=== PATIENT | female | born 1945 | race Caucasian/White ===

== ENCOUNTER 2021-04-13 08:53 | Inpatient (IN) | payer MEDICARE ==
[~2021-04-13] VITALS: Ht 159 cm; Wt 84.8 kg
[~2021-04-13 08:53] MED LIST: CBD GUMMIES; IBUP600 PO; LEVSOD75 PO; VITAMIN D310 MC4 PO; ZOLP6.25 PO
--- NOTE | 2021-04-13 09:46 | NUR ---
PT INTO SDS VIA W/C. History, Chart, Medications and Allergies reviewed before start of procedure. Lungs clear T/O to Auscultation. Patient confirms NPO status and agrees with scheduled surgery. Pre-Op teaching done. Pt verbalizes understanding.
--- NOTE | 2021-04-13 11:49 | NUR ---
04/13/21 1149 Kat Tristan SPINAL ATTEMPTED WITHOUT SUCCESS--PROCEED WITH GENERAL ANESTHESIA PER DR. GREENE
--- NOTE | 2021-04-13 14:23 | NUR ---
PT ARRIVED TO UNIT FROM PACU IN BED. REPORTED NAUSEA AND PAIN /. AWAITING ORDERS. PROVIDED WARM BLANKETS AND TURNED UP THERMOSTAT FOR PT COMFORT. LCA. HRR. AQUACEL TO L HIP CDI. POLAR PACK IN PLACE. SANAZ ONEAL AND SANTIAGO ON. VSS. TXA COMPLETED PER ORDERS. CALL LIGHT IN REACH. DAUGHTER AT BEDSIDE.
--- NOTE | 2021-04-13 16:21 | NUR ---
THERAPY IN TO SEE PT.
--- NOTE | 2021-04-13 16:44 | NUR ---
PT IN CHAIR WORKED W/THERAPY. REPORTS PAIN TOLERABLE AT THIS TIME, RATING 3/10. CALL LIGHT IN REACH.
--- NOTE | 2021-04-13 19:06 | NUR ---
SUMMARY NO ACUTE CHANGES SINCE ARRIVING TO FLOOR FROM PACU. PAIN CONTROLLED W/ONE PERCOCET PER ORDERS. VSS. ABX INFUSING PER ORDERS. PT UP IN CHAIR. CALL LIGHT IN REACH. REPORT GIVEN TO ONCOMING SHIFT.
[2021-04-14 04:29] LABS: BASOPHILS ABSOLUTE AUTO 0.03 K/mm3 (0.00-0.23); BASOPHILS PERCENT AUTO 0 % (0-2); EOSINOPHILS PERCENT AUTO 0 % (0-6); Hematocrit 34.7 % (33.0-51.0); Hemoglobin 11.3 g/dL (11.5-16.0); IMMATURE GRAN ABSOLUTE AUTO 0.06 K/mm3 (0.00-0.10); IMMATURE GRAN PERCENT AUTO 0 % (0-1); LYMPHOCYTES ABSOLUTE AUTO 1.49 K/mm3 (0.84-5.20); LYMPHOCYTES PERCENT AUTO 10 % (21-46); MONOCYTES ABSOLUTE AUTO 1.14 K/mm3 (0.16-1.47); MONOCYTES PERCENT AUTO 8 % (4-13); Mean Corpuscular HGB Conc 32.6 g/dL (31.5-36.5); Mean Corpuscular Volume 89 fL (80-100); Mean Platelet Volume 9.9 fL (9.1-12.4); NEUTROPHILS ABSOLUTE AUTO 12.12 K/mm3 (1.96-9.15); NEUTROPHILS PERCENT AUTO 82 % (41-73); Platelet Count 258 K/mm3 (150-400); RDW Coefficient Variation 14.2 % (11.7-14.2); RDW Standard Deviation 45.8 fL (35.1-46.3); White Blood Cell Count 14.84 K/mm3 (4.00-11.30)
[2021-04-14 04:54] LABS: Anion Gap 4 mmol/L (6-16); Blood Urea Nitrogen 16 mg/dL (8-24); Bun/Creatinine Ratio 23.1 (12.0-20.0); CO2, Blood 28 mmol/L (21-32); Calcium, Blood 8.7 mg/dL (8.5-10.1); Chloride, Blood 105 mmol/L (98-108); Creatinine, Blood 0.69 mg/dL (0.40-1.00); Glomerular Filtration Rate >60 (60-); Glucose, Blood 121 mg/dL (70-99); Potassium, Blood 4.4 mmol/L (3.5-5.5); Sodium, Blood 137 mmol/L (136-145)
--- NOTE | 2021-04-14 05:02 | NUR ---
SHIFT SUMMARY: PT POD#1 FOR LT VICENTA. PAIN WELL MANAGED WITH PERCOCET PER EMAR. PT RATING PAIN 2/10 THIS MORNING. AMBULATING TO BATHROOM WITH SBA+FWW/GB. DENIES DIZZINESS WITH AMBULATION. VS WNL T/O NIGHT. O2 STABLE ON RA. PT VOIDING WELL THIS SHIFT. TOLERATIN PO AND DENIES N/V.
--- NOTE | 2021-04-14 10:19 | NUR ---
THERAPY WORKING W/PT.
[2021-04-14] MEDS ORDERED: XARELTO10 M3 PO (11:19)
[2021-04-14] MEDS ORDERED: Percocet 5-3251 EACH PO (11:19)
--- NOTE | 2021-04-14 11:56 | NUR ---
DISCHARGED DC'D IV, CATHETER INTACT. PROVIDED DRESSING CHANGE. REVIEWED DC INSTRUCTIONS W/PATIENT AND COACHES; VERBALIZED UNDERSTANDING. PACKED UP POLAR PACK W/RIG BUILDER. MEDICATED PT FOR PAIN. LEFT UNIT IN WC W/POSSESSIONS AND DC PAPERWORK ACCOMPANIED BY COACHES.
== END 2021-04-14 12:01 | disposition home or self-care (01) | DRG 470 ==
LOC: ORSCMMR 08:53 → ORD 11:00 → ORSCMMR 11:00 → SURS 13:55 → ORSCMMR 14:27 → SURS 04-14 12:01
PROVIDERS: ADMIT Orthopaedic Surgery
PROC: 0SRB0JZ Replacement of Left Hip Joint with Synthetic Substitute, Open Approach (ICD-10-PCS; principal; 2021-04-13 11:00)
DX: M16.12 Unilateral primary osteoarthritis, left hip (principal); Z87.891 Personal history of nicotine dependence; F41.9 Anxiety disorder, unspecified; Z86.718 Personal history of other venous thrombosis and embolism; F32.9 Major depressive disorder, single episode, unspecified; E78.5 Hyperlipidemia, unspecified; G47.00 Insomnia, unspecified; Z90.49 Acquired absence of other specified parts of digestive tract; Z98.890 Other specified postprocedural states; Z79.899 Other long term (current) drug therapy; Z88.2 Allergy status to sulfonamides
CPT/HCPCS: 36415; 72170; 80048; 82947; 85025; 97110; 97116; 97162; 97530; A9270; C1713; C1776; J0171; J0690; J0735; J1100; J1170; J1885; J2250; J2270; J2370; J2405; J2550; J2704; J2795; J3010; J7120